=== PATIENT | female | born 1985 | race Caucasian/White ===

== ENCOUNTER → 2021-07-14 10:35 | Outpatient (BNVA) | payer BC, MEDICAID, SELFPAY | PROVIDERS: Visit Provider Internal Medicine | DX: M25.50 Pain in unspecified joint (principal); R76.8 Other specified abnormal immunological findings in serum; R21 Rash and other nonspecific skin eruption; Z11.59 Encounter for screening for other viral diseases; R10.9 Unspecified abdominal pain | CPT/HCPCS: 99204 ==

== ENCOUNTER 2021-07-14 13:33 | Outpatient (CLI) | payer BC, MEDICAID, SELFPAY ==
--- NOTE | 2021-07-14 13:36 | XR_ITS ---
WS: [id number] XR hand RT 2V [id number] REASON FOR EXAM: R76.8 - Other specified abnormal immunological findings i... FINDINGS: The joint spaces of the hand are well preserved. No periarticular bone abnormality or other bone abnormality is identified. No soft tissue abnormality noted. XR/XR hand RT 2V [id number] IMPRESSION: No significant abnormality.
--- NOTE | 2021-07-14 13:36 | XR_ITS ---
WS: [email or web address] XR sacroiliac jts m 3V [id number] REASON FOR EXAM: L40.9 - Psoriasis, unspecified FINDINGS: No subarticular bony abnormality. No narrowing, bridging, or fusion of the sacroiliac joints. XR/XR sacroiliac jts m 3V [id number] IMPRESSION: No significant abnormality.
--- NOTE | 2021-07-14 13:36 | XR_ITS ---
WS: [email or web address] XR cervical spine fl/ex [id number] REASON FOR EXAM: R76.8 - Other specified abnormal immunological findings i... FINDINGS: Reversal of the normal lordosis of the cervical centered at C4-C5. No focal vertebral body abnormality. Normal odontoid. Intervertebral disc spaces are relatively well-preserved. Flexion and extension views are normal. XR/XR cervical spine fl/ex [id number] IMPRESSION: In the neutral position there is reversal of the normal lordosis of the cervica l spine. No significant discogenic abnormality or vertebral body abnormality is identified to account for this. Possibly secondary to muscle spasm.
--- NOTE | 2021-07-14 13:36 | XR_ITS ---
WS: [email or web address] XR hand LT 2V [id number] REASON FOR EXAM: R76.8 - Other specified abnormal immunological findings i... FINDINGS: The joint spaces of the hand are well preserved. No periarticular bony abnormality or other bone abnormality. No soft tissue abnormality. XR/XR hand LT 2V [id number] IMPRESSION: No significant abnormality.
[2021-07-14 14:42] LABS: Add Urine Microscopic? NO; Charge for UA Resulting for Rev
[2021-07-14 14:51] LABS: Basophils # 0.1 10^3/uL (0.0-0.1); Basophils % 0.7 %; Eosinophils # 0.1 10^3/uL (0.0-0.8); Eosinophils % 1.5 %; Hematocrit 41.5 % (37.0-47.0); Lymphocytes # 1.7 10^3/uL (0.8-4.8); Lymphocytes % 24.1 %; Mean Corpuscular HGB Conc 33.7 g/dL (30.0-36.0); Mean Platelet Volume 10.2 fL (7.4-10.4); Monocytes # 0.5 10^3/uL (0.2-0.9); Monocytes % 7.7 %; Neutrophils # 4.53 10^3/uL (1.8-7.7); Neutrophils % 65.7 %; Nucleated Red Blood Cells % 0 %; Platelet Count 242 10^3/cmm (130-400); Red Blood Count 4.51 10^6/uL (4.1-5.3); Red Cell Distribution Width 12.2 % (12.1-15.1); White Blood Count 6.9 10^3/uL (4.0-10.0)
[2021-07-14 14:57] LABS: Urine Appearance Clear (CLEAR); Urine Color Straw (Yellow); pH Urine 6.5 (5-7)
[2021-07-14 14:58] LABS: Bilirubin Urine Neg (Negative); Blood Urine Neg (Negative); Glucose Urine UA Norm (Normal); Ketones Urine Negative (Negative); Leukocyte Esterase Urine Negative (Negative); Nitrate Urine Negative (Negative); Protein Urine Neg (Negative); Urobilinogen Urine Norm (Negative)
[2021-07-14 15:22] LABS: Alanine Aminotransferase 12 U/L (0-33); Albumin Level 4.5 g/dL (3.5-5.2); Alkaline Phosphatase 71 IU/L (35-105); Anion Gap 15.5 (5-19); Aspartate Amino Transferase 17 U/L (0-32); Blood Urea Nitrogen 10 mg/dL (6-20); C Reactive Protein 0.5 mg/L (0.0-4.9); Calcium 8.9 mg/dL (8.5-10.5); Carbon Dioxide 24 mmol/L (22-29); Chloride 106 mmol/L (98-107); Creatine Phosphokinase 67 U/L (26-192); Ferritin 46 ng/mL (15-150); Globulin 2.2 g/dL (1.3-4.6); Glomerular Filtration Rate 71.7 mL/min (90-130); Glucose 79 mg/dL (65-115); Iron 60 ug/dL (37-145); Magnesium 1.9 mg/dL (1.7-2.3); Osmolality Calculated 290 mOsm/kg (285-295); Potassium 4.5 mmol/L (3.5-5.1); Sodium 141 mmol/L (136-145); Total Bilirubin 0.2 mg/dL (0.15-1.2); Total Protein 6.7 g/dL (6.6-8.7); Vitamin B12 345 pg/mL (232-1245)
[2021-07-14 15:38] LABS: Complement C3 117 mg/dL (90-180)
[2021-07-14 15:44] LABS: Free T4 Free Thyroxine 1.03 ng/dL (0.82-1.77)
[2021-07-14 16:56] LABS: Hepatitis B Core AB, Total Non-Reactive (Nonreactive); Hepatitis C Virus Antibody Non-Reactive (Nonreactive)
[2021-07-14 17:54] LABS: Erythrocyte Sedimentation Rate > 1 mm/hr (0-15)
[2021-07-14 23:25] LABS: Hepatitis B Surface Antigen Non-Reactive (Nonreactive)
[2021-07-15 11:17] LABS: COMPLEMENT, TOTAL (CH50) >60 U/mL (31-60)
[2021-07-15 13:02] LABS: CENTROMERE B ANTIBODY <1.0 NEG AI (<1.0 NEG); JO-1 ANTIBODY <1.0 NEG AI (<1.0 NEG); RNP ANTIBODY <1.0 NEG AI (<1.0 NEG); SCL-70 ANTIBODY <1.0 NEG AI (<1.0 NEG); SJOGREN'S ANTIBODY (SS-A) <1.0 NEG AI (<1.0 NEG); SM ANTIBODY <1.0 NEG AI (<1.0 NEG); SS-B <1.0 NEG AI (<1.0 NEG)
[2021-07-15 13:38] LABS: COMPLEMENT COMPONENT C3C 124 mg/dL (83-193); COMPLEMENT COMPONENT C4C 24 mg/dL (15-57)
[2021-07-15 16:22] LABS: THYROID PEROXIDASE ANTIBODIES 66 IU/mL (<9)
[2021-07-15 16:33] LABS: Cyclic Citrullinated Peptide <16 UNITS
[2021-07-16 12:17] LABS: ANA SCREEN, IFA POSITIVE (NEGATIVE)
[2021-07-17 16:29] LABS: Immunoglobulin A 114 mg/dL (47-310)
[2021-07-18 03:07] LABS: Gliadin Ab.IgA <1.0 U/mL; Gliadin Ab.IgG <1.0 U/mL; Tissue Transglutaminase IgA Ab <1.0 U/mL; Tissue transglutaminase Ab.IgG <1.0 U/mL
[2021-07-20 11:19] LABS: DNA AB (DS) CRITHIDIA,IFA NEGATIVE (NEGATIVE)
== END 2021-07-14 13:34 | disposition home or self-care (01) ==
LOC: RAD 13:34
PROVIDERS: Visit Provider Internal Medicine
DX: M25.50 Pain in unspecified joint (principal); R21 Rash and other nonspecific skin eruption; R76.8 Other specified abnormal immunological findings in serum; L40.9 Psoriasis, unspecified; Z11.59 Encounter for screening for other viral diseases
CPT/HCPCS: 36415; 72040; 72202; 73120; 80053; 81003; 82533; 82550; 82607; 82728; 82784; 83516; 83540; 83735; 84439; 84443; 85025; 85651; 86140; 86160; 86162; 86200; 86235; 86255; 86376; 86431; 86704; 86803; 87340

== ENCOUNTER → 2022-01-27 15:22 | Outpatient (BNVA) | payer BC, MEDICAID, SELFPAY | PROVIDERS: Visit Provider Internal Medicine | DX: M25.50 Pain in unspecified joint (principal); R76.8 Other specified abnormal immunological findings in serum; R21 Rash and other nonspecific skin eruption; M54.50 Low back pain, unspecified; G62.9 Polyneuropathy, unspecified | CPT/HCPCS: 99214 ==

== ENCOUNTER → 2023-12-06 10:46 | Outpatient (BNVA) | payer BC, MEDICAID, SELFPAY | PROVIDERS: Visit Provider Internal Medicine Rheumatology | DX: Z79.899 Other long term (current) drug therapy (principal); R76.8 Other specified abnormal immunological findings in serum; M25.50 Pain in unspecified joint; Z11.59 Encounter for screening for other viral diseases; Z11.1 Encounter for screening for respiratory tuberculosis; M19.90 Unspecified osteoarthritis, unspecified site; L56.8 Other specified acute skin changes due to ultraviolet radiation | CPT/HCPCS: 36415; 73130; 80076; 82565; 85025; 86140; 86480; 86704; 86803; 87340 ==

== ENCOUNTER → 2024-03-13 12:35 | Outpatient (BNVA) | payer BC, MEDICAID, SELFPAY | PROVIDERS: Visit Provider Student in an Organized Health Care Education/Training Program | DX: Z22.7 Latent tuberculosis (principal) | CPT/HCPCS: 36415; 71045; 86480 ==

== ENCOUNTER → 2024-05-09 12:49 | Outpatient (BNVA) | payer BC, MEDICAID, SELFPAY | PROVIDERS: Visit Provider Student in an Organized Health Care Education/Training Program | DX: Z22.7 Latent tuberculosis (principal); Z79.899 Other long term (current) drug therapy | CPT/HCPCS: 36415; 80053; 85025 ==

== ENCOUNTER → 2025-04-24 16:41 | Outpatient (BNVA) | payer BC, MEDICAID, SELFPAY | PROVIDERS: Visit Provider Internal Medicine Rheumatology | DX: Z79.899 Other long term (current) drug therapy (principal) | CPT/HCPCS: 36415; 80076; 82306; 82565; 85025; 85651; 86140 ==